=== PATIENT | female | born 1985 | race African-American/Black ===

== ENCOUNTER → 2017-08-13 | Outpatient (CLI) | payer BC | END | disposition home or self-care (01) | LOC: MAMMO 13:15 | DX: N60.12 Diffuse cystic mastopathy of left breast (principal) | CPT/HCPCS: 76641; 77066; G0279 ==

== ENCOUNTER → 2019-03-14 | Outpatient (CLI) | payer BC ==
[2015-11-24 23:57] VITALS: BP 154/101
[~2019-03-14] MED LIST: DOXY100C2 PO
--- NOTE | 2019-03-14 16:23 | RAD ---
CHEST PA LATERAL History: Cough Comparison: March 24, 2017 Findings: 2 views of the chest are submitted. There is no new lobar consolidation, pleural fluid, pneumothorax. Cardiac silhouette is stable, within normal limits. Impression: 1. No acute radiographic abnormality is identified. Electronically signed by: Ishan Leary MD (03/14/2019 4:20 PM) [id number]
== END | disposition home or self-care (01) ==
LOC: RAD 13:28
PROVIDERS: ATTEND Nurse Practitioner Family
DX: R05 Cough (principal)
CPT/HCPCS: 71046

== ENCOUNTER 2021-08-06 05:56 | Emergency (ER) | payer BC ==
[~2021-08-06] VITALS: Ht 162.6 cm; Wt 80.9 kg
[~2021-08-06 05:56] MED LIST changes: -DOXY100C2 PO; +DOXY100C3 PO
[2021-08-06] MEDS ORDERED: IV NORMAL SALINE 1000ML BAG 1,000 ML IV ONE (06:15)
[2021-08-06] MEDS ORDERED: ONDANSETRON PF 4 MG/2 ML VIAL. IVP ONE (06:15)
[2021-08-06] MEDS ORDERED: fentaNYL PF VIAL 100 MCG/2 ML VIAL IVP ONE (06:15)
[2021-08-06 06:39] LABS: BASO % 0 % (0-3); EOS % 0 % (0-3); HEMATOCRIT 30.1 % (36.0-47.0); HEMOGLOBIN 8.9 g/dL (12.0-15.5); LYMPH # 0.5 x10^3/uL (1.0-4.8); LYMPH % 4 % (24-48); MEAN CORPUSCULAR HEMOGLOBIN 18 pg (25-35); MEAN CORPUSCULAR HGB CONC 30 g/dL (31-37); MEAN CORPUSCULAR VOLUME 62 fL (79-100); MONO # 0.5 x10^3/uL (0.0-1.1); MONO % 5 % (0-9); NEUT # 9.4 x10^3/uL (1.8-7.7); NEUT % 91 % (31-73); PLATELET COUNT 425 x10^3/uL (140-400); RED BLOOD COUNT 4.84 x10^6/uL (3.50-5.40); RED CELL DISTRIBUTION WIDTH 17.5 % (11.5-14.5); WHITE BLOOD COUNT 10.4 x10^3/uL (4.0-11.0)
--- NOTE | 2021-08-06 06:39 | PHYS DOC ---
Past Medical History Past Medical History: UTI Past Surgical History: Appendectomy Smoking Status: Former Smoker Alcohol Use: Rarely Drug Use: None Adult General Chief Complaint Chief Complaint: NAUSEA/VOMITING/DIARRHEA HPI HPI Patient is a 36 year old female presenting to the emergency department for evaluation of abdominal pain nausea vomiting and diarrhea that started yesterday and has persisted. She says that the emesis is nonbloody nonbilious and that the diarrhea was one episode and was nonbloody. The abdominal pain is in both upper quadrants and crampy mostly associated with vomiting. She says she has had no abdominal surgeries and does not think that she could be at this time. She says she tried drinking water and eating a sandwich and she vomited both of these things up this morning. She is in no acute distress with normal vital signs. Review of Systems Review of Systems Constitutional: Denies fever or chills [] Eyes: Denies change in visual acuity, redness, or eye pain [] HENT: Denies nasal congestion or sore throat [] Respiratory: Denies cough or shortness of breath [] Cardiovascular: No additional information not addressed in HPI [] GI: + abdominal pain, nausea, vomiting, diarrhea [] : Denies dysuria or hematuria [] Musculoskeletal: Denies back pain or joint pain [] Integument: Denies rash or skin lesions [] Neurologic: Denies headache, focal weakness or sensory changes [] All other systems were reviewed and found to be within normal limits, except as documented in this note. Current Medications Current Medications Current Medications Medications (Trade) Dose Ordered Sig/Gissel Start Time Stop Time Status Last Admin Dose Admin Acetaminophen/ Hydrocodone Bitart (Lortab 5/325) 1 tab 1X ONCE 08/06/21 09:00 08/06/21 09:01 DC Fentanyl Citrate (Fentanyl 2ml Vial) 50 mcg 1X ONCE 08/06/21 06:15 08/06/21 06:16 DC 08/06/21 06:35 50 MCG Info (CONTRAST GIVEN -- Rx MONITORING) 1 each PRN DAILY PRN 08/06/21 08:00 08/08/21 07:59 Iohexol (Omnipaque 300 Mg/ml) 75 ml 1X ONCE 08/06/21 08:00 08/06/21 08:01 DC 08/06/21 08:10 75 ML Ketorolac Tromethamine (Toradol 15mg Vial) 15 mg 1X ONCE 08/06/21 09:00 08/06/21 09:01 DC Ondansetron HCl (Zofran) 8 mg 1X ONCE 08/06/21 06:15 08/06/21 06:16 DC 08/06/21 06:36 8 MG Sodium Chloride 1,000 ml @ 1,000 mls/hr 1X ONCE 08/06/21 06:15 08/06/21 07:14 DC 08/06/21 06:23 1,000 MLS/HR Allergies Allergies Allergies Coded Allergies Type Severity Reaction Last Updated Verified No Known Drug Allergies 08/06/21 No Physical Exam Physical Exam Constitutional: Well developed, well nourished, no acute distress, non-toxic appearance. [] HENT: Normocephalic, atraumatic, bilateral external ears normal, oropharynx moist, no oral exudates, nose normal. [] Eyes: PERRLA, EOMI, conjunctiva normal, no discharge. [] Neck: Normal range of motion, no tenderness, supple, no stridor. [] Cardiovascular:Heart rate regular rhythm, no murmur [] Lungs & Thorax: Bilateral breath sounds clear to auscultation [] Abdomen: Bowel sounds normal, soft, positive epigastric and bilateral upper quadrant tenderness to palpation but no rebound or guarding Skin: Warm, dry, no erythema, no rash. [] Back: No tenderness, no CVA tenderness. [] Extremities: No tenderness, no cyanosis, no clubbing, ROM intact, no edema. [] Neurologic: Alert and oriented X 3, normal motor function, normal sensory function, no focal deficits noted. [] Current Patient Data Vital Signs Vital Signs Date Time Temp Pulse Resp B/P (MAP) Pulse Ox O2 Delivery O2 Flow Rate FiO2 08/06/21 06:41 81 110/69 (83) 97 Room Air 08/06/21 06:35 20 08/06/21 06:03 98.2 98.2 Lab Values Laboratory Tests Test 08/06/21 06:25 08/06/21 07:12 08/06/21 07:19 White Blood Count 10.4 x10^3/uL (4.0-11.0) Red Blood Count 4.84 x10^6/uL (3.50-5.40) Hemoglobin 8.9 g/dL (12.0-15.5) L Hematocrit 30.1 % (36.0-47.0) L Mean Corpuscular Volume 62 fL (79-100) L Mean Corpuscular Hemoglobin 18 pg (25-35) L Mean Corpuscular Hemoglobin Concent 30 g/dL (31-37) L Red Cell Distribution Width 17.5 % (11.5-14.5) H Platelet Count 425 x10^3/uL (140-400) H Neutrophils (%) (Auto) 91 % (31-73) H Lymphocytes (%) (Auto) 4 % (24-48) L Monocytes (%) (Auto) 5 % (0-9) Eosinophils (%) (Auto) 0 % (0-3) Basophils (%) (Auto) 0 % (0-3) Neutrophils # (Auto) 9.4 x10^3/uL (1.8-7.7) H Lymphocytes # (Auto) 0.5 x10^3/uL (1.0-4.8) L Monocytes # (Auto) 0.5 x10^3/uL (0.0-1.1) Eosinophils # (Auto) 0.0 x10^3/uL (0.0-0.7) Basophils # (Auto) 0.0 x10^3/uL (0.0-0.2) Segmented Neutrophils % 88 % (35-66) H Band Neutrophils % 1 % (0-9) Lymphocytes % 8 % (24-48) L Monocytes % 3 % (0-10) Platelet Estimate Increased (ADEQUATE) Large Platelets Occ Anisocytosis Mod Microcytosis Slight Sodium Level 136 mmol/L (136-145) Potassium Level 3.8 mmol/L (3.5-5.1) Chloride Level 101 mmol/L (98-107) Carbon Dioxide Level 24 mmol/L (21-32) Anion Gap 11 (6-14) Blood Urea Nitrogen 16 mg/dL (7-20) Creatinine 0.8 mg/dL (0.6-1.0) Estimated GFR (Cockcroft-Gault) 98.2 BUN/Creatinine Ratio 20 (6-20) Glucose Level 136 mg/dL (70-99) H Calcium Level 8.6 mg/dL (8.5-10.1) Total Bilirubin 0.5 mg/dL (0.2-1.0) Aspartate Amino Transferase (AST) 16 U/L (15-37) Alanine Aminotransferase (ALT) 22 U/L (14-59) Alkaline Phosphatase 63 U/L (46-116) Total Protein 8.0 g/dL (6.4-8.2) Albumin 4.0 g/dL (3.4-5.0) Albumin/Globulin Ratio 1.0 (1.0-1.7) Lipase 43 U/L (73-393) L Serum Test, Qualitative Negative (NEG) Urine Collection Type Void Urine Color (Auto) Light yellow Urine Turbidity Clear Urine pH (Auto) 5.5 (<5.0-8.0) Urine Specific [place] 1.030 (1.000-1.030) Urine Protein (Auto) Negative mg/dL (Negative) Urine Glucose (Auto)(UA) Negative mg/dL (Negative) Urine Ketones (Auto) 20 mg/dL (Negative) Urine Blood (Auto) Negative (Negative) Urine Nitrite Positive (Negative) Urine Bilirubin (Auto) Negative (Negative) Urine Urobilinogen (Auto) Normal mg/dL (Normal) Urine Leukocyte Esterase (Auto) Small (Negative) Urine RBC 0 /HPF (0-2) Urine WBC 5-10 /HPF (0-4) Urine Squamous Epithelial Cells Mod /LPF Urine Bacteria Moderate /HPF (0-FEW) Urine Mucus Slight /LPF POC Urine HCG, Qualitative Hcg negative (Negative) Laboratory Tests 08/06/21 06:25 Laboratory Tests 08/06/21 06:25 EKG EKG [] Radiology/Procedures Radiology/Procedures [] Course & Med Decision Making Course & Med Decision Making Patient has symptoms of a likely gastroenteritis I will check labs and imaging treat symptoms and reassess. Patient does have anemia and she says that she does have baseline anemia and this is not a new finding. Her work-up otherwise and her labs were negative. She was nitrate positive with moderate bacteria but it does appear to be contaminated. She says she does not have dysuria and there is the option to repeat the urinalysis with a clean specimen or start her empirically on antibiotics and decision was made for her to be on a short course of antibiotics . Looking at the films it appears that she may have a mesenteric adenitis and I discussed all incidental findings and the need for follow-up on labs and imaging. Patient says she feels much better and was able to tolerate fluids by mouth with no difficulty and is asking to go home so I will discharge her in stable condition told her to follow with primary care provider within 2 3 days for recheck and come back to the ER sooner with worsening pain fevers vomiting or other general concerns. Dragon Disclaimer Dragon Disclaimer This electronic medical record was generated, in whole or in part, using a voice recognition dictation system. Departure Departure Impression: Primary Impression: UTI (urinary tract infection) Additional Impressions: Abdominal pain Nausea & vomiting Diarrhea Anemia Dehydration Disposition: HOME / SELF CARE / HOMELESS Condition: STABLE Referrals: MARGUERITE [facility] (PCP) Patient Instructions: Viral Gastroenteritis, [id number] Scripts Ciprofloxacin Hcl (CIPROFLOXACIN HCL) 250 Mg Tablet 1 TAB PO BID, #6 TAB Prov: JEFFERY ANDRE DO 08/06/21 Hydrocodone Bit/Acetaminophen (HYDROCODONE-APAP 5-325 ) 1 Tab Tablet 1 TAB PO PRN Q6HRS PRN for PAIN, #10 TAB 0 Refills Prov: JEFFERY ANDRE DO 08/06/21 Ondansetron (ONDANSETRON ODT) 4 Mg Tab.rapdis 1 TAB PO PRN Q6-8HRS, #16 TAB Prov: JEFFERY ANDRE DO 08/06/21 Problem Qualifiers Additional Impressions: Abdominal pain Abdominal location: generalized Qualified Codes: R10.84 - Generalized abdominal pain Nausea & vomiting Vomiting type: unspecified Qualified Codes: R11.2 - Nausea with vomiting, unspecified JEFFERY ANDRE DO Aug 06, 2021 06:39
[2021-08-06 06:52] LABS: CALCIUM 8.6 mg/dL (8.5-10.1); CREATININE 0.8 mg/dL (0.6-1.0); GFR 98.2; POTASSIUM 3.8 mmol/L (3.5-5.1)
[2021-08-06 06:59] LABS: TOTAL BILIRUBIN 0.5 mg/dL (0.2-1.0)
[2021-08-06 07:00] LABS: PREG TEST PT QUAL NEGATIVE (NEG)
[2021-08-06 07:42] LABS: BACTERIA,URINE MODERATE /HPF (0-FEW); RBC,URINE 0 /HPF (0-2)
[2021-08-06] MEDS ORDERED: IOHEXOL 300 MG/ML 100ML VIAL. IV ONE (08:00)
[2021-08-06] MEDS ORDERED: CONTRAST GIVEN. MC PRN (08:00)
--- NOTE | 2021-08-06 08:18 | RAD ---
EXAMINATION: CT ABDOMEN+PELVIS W CLINICAL HISTORY: Abdominal pain, n,v,d. TECHNIQUE: CT of the abdomen and pelvis was performed using standard technique, scanning from just ab ove the dome of the diaphragm to the symphysis pubis following administration of intravenous contrast . CT Dose Reduction Employed: One or more of the following individualized dose reduction techniques wer e utilized for this examination: 1. Automated exposure control 2. Adjustment of the mA and/or kV ac cording to patient size 3. Use of iterative reconstruction technique. COMPARISON: None FINDINGS: Minimal left basilar subsegmental atelectasis. Liver, gallbladder, pancreas, spleen, and adrenal glands unremarkable. Subcentimeter hypoenhancing cortical focus superior pole left kidney, too small adequately characteri ze. Right kidney unremarkable. Minimally filled urinary bladder suboptimally evaluated. Dominant right ovarian follicle. Left ovary and uterus unremarkable on limited evaluation. No bowel dilation or definite wall thickening. Appendix not definitively visualized. Multiple prominent mesenteric lymph nodes in the epigastric region and right lower quadrant, possibly reactive. No abdominal aortic or iliac artery aneurysm. No evidence of acute osseous abnormality. IMPRESSION: No definitive evidence of acute abdominopelvic abnormality. Multiple prominent mesenteric lymph nodes as described, possibly reactive. Appendix not definitively visualized. Electronically signed by: Steve Queen DO (08/06/2021 8:16 AM) [id number]
[2021-08-06 08:53] LABS: % BANDS 1 % (0-9); % LYMPHS 8 % (24-48); % MONOS 3 % (0-10); % SEGS 88 % (35-66)
[2021-08-06 08:55] LABS: ANISOCYTOSIS MOD; MICROCYTOSIS SLIGHT; PLT ESTIMATE INCREASED (ADEQUATE)
[2021-08-06 08:58] VITALS: BP 113/68
[2021-08-06] MEDS ORDERED: HYDROcodone/APAP 5/325MG 1 TAB TABLET PO ONE (09:00)
[2021-08-06] MEDS ORDERED: KETOROLAC 15 MG/ML VIAL. IVP ONE (09:00)
[2021-08-06] MEDS ORDERED: CIPR250T PO (09:19)
[2021-08-06] MEDS ORDERED: HYDR-2761 PO (09:19)
[2021-08-06] MEDS ORDERED: ONDA4TAB12 PO (09:19)
== END 2021-08-06 09:34 | disposition home or self-care (01) ==
LOC: ER 05:56
DX: N39.0 Urinary tract infection, site not specified (principal); R11.2 Nausea with vomiting, unspecified; R19.7 Diarrhea, unspecified; D64.9 Anemia, unspecified; E86.0 Dehydration; Z87.891 Personal history of nicotine dependence; Z90.89 Acquired absence of other organs
CPT/HCPCS: 36415; 74177; 80053; 81001; 81025; 83690; 84703; 85007; 85025; 87086; 96361; 96374; 96375; 99285; J1885; J2405; J3010; J7030; Q9967